=== PATIENT | male | born 1985 | race Hispanic/Latino ===

== ENCOUNTER 2021-09-18 07:12 | Observation (INO) | payer OTHER ==
[2021-09-15 09:48] VITALS: BP 145/80
[2021-09-15 13:48] LABS: BASOPHILS % (AUTO) 0.4 % (0.0-5.0); EOSINOPHILS % (AUTO) 1.8 % (0.0-8.0); HEMATOCRIT 45.7 % (42-54); LYMPHOCYTES % (AUTO) 36.2 % (21.0-51.0); MEAN CORPUSCULAR HEMOGLOBIN 28.9 pg (27.0-33.0); MEAN CORPUSCULAR HGB CONC 33.9 g/dL (32.0-36.0); MEAN CORPUSCULAR VOLUME 85.3 fL (79-99); MONOCYTES % (AUTO) 8.5 % (3.0-13.0); NEUTROPHILS % (AUTO) 52.6 % (40.0-77.0); PLATELET COUNT (AUTO) 228 K/uL (130-400); RED BLOOD CELL COUNT(AUTO) 5.36 MIL/uL (4.50-6.20); RED CELL DISTRIBUTION WIDTH 11.9 % (11.0-15.5); WHITE BLOOD COUNT (AUTO) 5.6 K/uL (4.8-10.8)
[2021-09-15 14:01] LABS: POTASSIUM 4.3 mmol/L (3.5-5.1)
[2021-09-15 14:15] LABS: INR 0.93 (0.85-1.15); PROTHROMBIN TIME 10.1 SEC (9.6-11.6)
[2021-09-15 14:17] LABS: PARTIAL THROMBOPLASTIN TIME 26.9 SEC (26.3-35.5)
[~2021-09-18] VITALS: Ht 162.6 cm; Wt 73.6 kg
[~2021-09-18 07:12] MED LIST: 0.9% NACL 500ML IV.SOLN 500 ML IV SCH; MULT-1367 PO; OMEP40CA21 PO; VITA-395 PO
[2021-09-18 07:26] VITALS: BP 147/89
[2021-09-18] MEDS ORDERED: 0.9%NACL 1000ML 1,000 ML IV ONE (07:55)
[2021-09-18] MEDS ORDERED: HEPARIN 10,000 UNIT/10ML (1,000 UNIT/ML) VIAL ONE ×2 (09:16→13:36)
[2021-09-18] MEDS ORDERED: LIDOCAINE HCL 400MG/20ML VIAL ONE (09:16)
[2021-09-18] MEDS ORDERED: MEPERIDINE-PF 25 MG/ML SYG ONE ×5 (09:49→13:49)
[2021-09-18] MEDS ORDERED: MIDAZOLAM HCL 1 MG/ML 2ML VIAL ONE ×5 (09:49→13:49)
[2021-09-18] MEDS ORDERED: ISOPROTERENOL HCL 0.2 MG/ML AMP/VIAL/BAG ONE ×2 (09:55→10:29)
[2021-09-18] MEDS ORDERED: 0.9%NACL 1000ML 1,000 ML IV SCH (10:00)
[2021-09-18] MEDS ORDERED: ADENOSINE 90MG VIAL IV ONE (10:55)
[2021-09-18] MEDS ORDERED: METOPROLOL TARTRATE 1 MG/ML 5ML VIAL IV ONE (11:33)
[2021-09-18] MEDS ORDERED: PROTAMINE SULFATE 10 MG/ML 25ML VIAL IV ONE (14:18)
[2021-09-18] MEDS ORDERED: ASPIRIN 325MG EC TAB PO ONE (15:00)
[2021-09-18 15:40] VITALS: BP 129/77
[2021-09-18 15:55] VITALS: BP 126/72
[2021-09-18 16:10] VITALS: BP 119/86
[2021-09-18 16:40] VITALS: BP 130/85
[2021-09-18 20:13] VITALS: BP 142/88
[2021-09-18] MEDS ORDERED: ACETAMINOPHEN 325 MG TAB PO PRN (22:30)
[2021-09-19 00:34] VITALS: BP 124/86
[2021-09-19 04:13] VITALS: BP 116/74
[2021-09-19] MEDS ORDERED: PANTOPRAZOLE 40 MG TAB DR PO SCH (09:00)
[2021-09-19] MEDS ORDERED: ASPIRIN 325MG EC TAB PO SCH (09:00)
[2021-09-19] MEDS ORDERED: ASPI-1026 PO (09:05)
== END 2021-09-19 10:00 | disposition home or self-care (01) ==
LOC: DAH 07:12 → DAHIP 07:13 → DAH 07:13 → 2DH 15:04
PROVIDERS: ADMIT Internal Medicine Cardiovascular Disease; ATTEND Internal Medicine Cardiovascular Disease
DX: I45.6 Pre-excitation syndrome (principal); I47.1 Supraventricular tachycardia; Z79.899 Other long term (current) drug therapy
CPT/HCPCS: 80048; 85025; 85610; 85730; 36415 ×2; 93005 ×2; 93623; 93462; 93653; 93662; 96360; 96361 ×2; 85347 ×4; C1894 ×8; C1769; C1730 ×4; C1893; A4215 ×2; A4649 ×2; C1732; G0378 ×19; J3490 ×4; J7030 ×2; J2720; J1644 ×4; J2250 ×5; J2175 ×5; J0153; A4223 ×3; A4554; A4222; A4221; A4663; A4216; A4606; 99156; 99157

== ENCOUNTER → 2023-11-24 | Outpatient (CLI) | payer OTHER ==
[~2023-11-24] MED LIST changes: -0.9% NACL 500ML IV.SOLN 500 ML IV SCH; +ASPI-1026 PO; +IOHEXOL 350 MG/ML 100ML INFUS..BTL IV ONE; +metoPROLOL tartRATE 1 MG/ML 5ML VIAL IV ONE
== END | disposition home or self-care (01) ==
LOC: RAH 12:46
PROVIDERS: ATTEND Internal Medicine Cardiovascular Disease
DX: R07.9 Chest pain, unspecified (principal)
CPT/HCPCS: 75574; J3490 ×2; Q9967